=== PATIENT | male | born 1980 | race Caucasian/White ===

== ENCOUNTER 2017-07-13 11:39 | Emergency (ER) | payer MEDICAID | END 2017-07-13 12:08 | disposition home or self-care (01) | LOC: E/R 11:39 | DX: H10.9 Unspecified conjunctivitis (principal); J06.9 Acute upper respiratory infection, unspecified | CPT/HCPCS: 99283; Z7502 ==

== ENCOUNTER 2017-09-17 10:39 | Emergency (ER) | payer MEDICAID | END 2017-09-17 11:45 | disposition home or self-care (01) | LOC: E/R 10:39 | DX: H10.9 Unspecified conjunctivitis (principal) | CPT/HCPCS: 99283; Z7502 ==

== ENCOUNTER 2017-11-12 11:26 | Emergency (ER) | payer MEDICAID | END 2017-11-12 13:56 | disposition home or self-care (01) | LOC: E/R 13:56 | DX: S90.861A Insect bite (nonvenomous), right foot, initial encounter (principal); W57.XXXA Bitten or stung by nonvenomous insect and other nonvenomous arthropods, initial encounter; Y92.9 Unspecified place or not applicable | CPT/HCPCS: 99283; Z7502 ==

== ENCOUNTER 2018-03-25 09:27 | Emergency (ER) | payer MEDICAID | END 2018-03-25 10:50 | disposition home or self-care (01) | LOC: FTE 10:50 | DX: H11.001 Unspecified pterygium of right eye (principal) | CPT/HCPCS: 99283; Z7502 ==

== ENCOUNTER 2018-08-30 17:41 | Emergency (ER) | payer MEDICAID | END 2018-08-30 20:28 | disposition home or self-care (01) | LOC: FTE 17:41 | DX: H01.112 Allergic dermatitis of right lower eyelid (principal); H01.115 Allergic dermatitis of left lower eyelid | CPT/HCPCS: 99283; Z7502 ==

== ENCOUNTER 2018-11-05 11:41 | Emergency (ER) | payer MEDICAID ==
[2018-11-05] MEDS: KETOROLAC 30 MG INJ IV (12:54)
[2018-11-05 12:56] LABS: ADD MAN DIFF? NO
[2018-11-05 12:57] LABS: WHITE BLOOD COUNT 8.2 10^3/ul (4.8-10.8)
[2018-11-05 12:57] LABS: BASOPHILS % 0.5 % (0.0-2.0); EOSINOPHILS # 0.1 10^3/ul (0.0-0.5); EOSINOPHILS % 1.7 % (0.0-7.0); HEMATOCRIT 43.7 % (42.0-52.0); HEMOGLOBIN 14.9 g/dl (14.0-18.0); LYMPHOCYTES # 3.1 10^3/ul (0.8-2.9); LYMPHOCYTES % 38.2 % (15.0-51.0); MEAN CORPUSCULAR HGB CONC 34.1 g/dl (32.0-37.0); MEAN CORPUSCULAR VOLUME 87.9 fl (82.0-101.0); MEAN PLATELET VOLUME 11.1 fl (7.4-10.4); MONOCYTE # 0.7 10^3/ul (0.3-0.9); MONOCYTES % 8.2 % (0.0-11.0); NEUTROPHIL # 4.2 10^3/ul (1.6-7.5); PLATELET COUNT 217 10^3/UL (140-415); RED BLOOD COUNT 4.97 10^6/ul (4.70-6.10)
[2018-11-05 13:21] LABS: ANION GAP 10 (5-13); BLOOD UREA NITROGEN 15 mg/dl (7-20); CALCIUM 9.8 mg/dl (8.4-10.2); CARBON DIOXIDE 26 mmol/L (21-31); CHLORIDE 106 mmol/L (97-110); CREATININE 0.65 mg/dl (0.61-1.24); Estimated GFR > 60 mL/min (>60); GLUCOSE 115 mg/dl (70-220); SODIUM 142 mmol/L (135-144)
[2018-11-05 13:22] LABS: ALANINE AMINOTRANSFERASE 38 IU/L (13-69); ALBUMIN/GLOBULIN RATIO 1.42; ALKALINE PHOSPHATASE 69 IU/L (42-121); ASPARTATE AMINO TRANSFERASE 37 IU/L (15-46); BILIRUBIN,INDIRECT 0.5 mg/dl (0-1.1); BILIRUBIN,TOTAL 0.5 mg/dl (0.2-1.3); TOTAL PROTEIN 8.5 g/dl (6.1-8.1)
[2018-11-05] MEDS: IOHEXOL 300MG/ML 150 ML BTL (14:14)
[2018-11-05] MEDS: SOD CHLORIDE 0.9% 100 ML (14:14)
== END 2018-11-05 18:22 | disposition home or self-care (01) ==
LOC: FTE 11:41
DX: M54.5 Low back pain (principal)
CPT/HCPCS: 36415; 72131; 80053; 85025; 96374; 99285-25